=== PATIENT | female | born 1985 | race Two or more races ===

== ENCOUNTER 2020-06-02 14:26 | Emergency (ER) | payer OTHER ==
[~2020-06-02] VITALS: Ht 149.9 cm; Wt 53.5 kg
[2020-06-02] MEDS ORDERED: LEVSIN/SL0.125 MG SL (20:52)
== END 2020-06-02 21:05 | disposition home or self-care (01) ==
LOC: ER 14:26
DX: R10.12 Left upper quadrant pain (principal)

== ENCOUNTER 2020-09-07 20:12 | Emergency (ER) | payer OTHER ==
[~2020-09-07] VITALS: Ht 149.9 cm; Wt 50.8 kg
[~2020-09-07 20:12] MED LIST: LEVSIN/SL0.125 MG SL
[2020-09-07] MEDS ORDERED: DICLOFENAC SODI75 MG PO (21:02)
== END 2020-09-07 21:26 | disposition home or self-care (01) ==
LOC: ER 20:12
DX: S43.491A Other sprain of right shoulder joint, initial encounter (principal); X50.0XXA Overexertion from strenuous movement or load, initial encounter; Y93.B9 Activity, other involving muscle strengthening exercises; Y92.89 Other specified places as the place of occurrence of the external cause; Y99.8 Other external cause status

== ENCOUNTER 2021-05-29 07:29 | Emergency (ER) | payer OTHER ==
[~2021-05-29] VITALS: Ht 149.9 cm; Wt 48.1 kg
[~2021-05-29 07:29] MED LIST changes: +DICLOFENAC SODI75 MG PO
== END 2021-05-29 13:20 | disposition home or self-care (01) ==
LOC: ER 07:29
DX: R10.84 Generalized abdominal pain (principal); R10.13 Epigastric pain

== ENCOUNTER 2025-03-25 00:30 | Inpatient (IN) | payer OTHER ==
[~2025-03-25] VITALS: Ht 157.5 cm; Wt 50.3 kg
[2025-03-25] MEDS ORDERED: ADENOSINE 3 MG/ML VIAL IV STA (01:31)
[2025-03-25] MEDS ORDERED: ADENOSINE 3 MG/ML VIAL IV ONE ×2 (01:33→01:42)
[2025-03-25] MEDS ORDERED: 0.9 % SODIUM CHLORIDE 1,000 ML IV ONE (01:45)
[2025-03-25] MEDS ORDERED: DILTIAZEM HCL 125 MG in DEXTROSE 5 % IN WATER 125 ML IV SCH (02:00)
[2025-03-25 02:08] LABS: BASO % 1.0 % (0.1-1.2); EOS # 0.28 (0.04-0.54); EOS % 1.6 % (0.7-7.0); LYMPH # 4.09 (1.18-3.74); LYMPH % 23.3 % (19.3-53.1); MEAN PLATELET VOLUME 11.40 fl (9.4-12.4); MONO # 1.11 (0.24-0.82); MONO % 6.3 % (4.7-12.5); NEUT # 11.88 (1.56-6.13); NEUT % 67.5 % (34.0-71.1); RED CELL DISTRIBUTION WIDTH 14.5 % (11.6-14.4)
[2025-03-25 02:26] LABS: INR < 0.93
[2025-03-25 02:43] LABS: ALT/SGPT 24.0 U/L (12-78); AST/SGOT 37.0 U/L (15-37); BILIRUBIN TOTAL 0.32 mg/dL (0.3-1.2); BUN CREA RATIO 29.0 (7.0-25.0); CREATININE SERUM 0.9 mg/dL (0.55-1.02); GFR 70.45; GLOBULINA 4.2 G/DL (2.4-3.5); GLUCOSE FASTING 87.0 mg/dL (65-100); OSMOLALITY SERUM 285.0 MOSM/KG (275-295); TSH 2.18 uIU/mL (0.358-3.74)
[2025-03-25 03:14] LABS: EOSINOPHIL MAN 1.0 %; LYMPHOCYTE MAN 30.0 %; NEUTROPHILS MAN 61.0 %
[2025-03-25 03:15] LABS: MONOCYTE MAN 6.0 %
[2025-03-25 10:25] LABS: COVID-19 AG NEGATIVE (NEGATIVE)
[2025-03-25] MEDS ORDERED: METOPROLOL SUCCINATE 25 MG TAB.SR.24H PO SCH (11:55)
[2025-03-25 14:16] VITALS: BP 122/71; O2SAT 100
[2025-03-25 14:47] LABS: CKMB 1.4 NG/ML (0.5-3.6); PHOSPHOKINASE CREATININE 122.0 U/L (26-192)
[2025-03-25 18:07] VITALS: O2SAT 96
[2025-03-25] MEDS ORDERED: ATORVASTATIN CALCIUM 10 MG TABLET PO SCH (21:00)
[2025-03-25 21:20] VITALS: O2SAT 90
[2025-03-25 22:19] LABS: PHOSPHOKINASE CREATININE 94 U/L (26-192)
[2025-03-25 22:20] LABS: CKMB < 1.0 NG/ML (0.5-3.6)
[2025-03-26] VITALS (9 sets, daily range): BP systolic 76–98; BP diastolic 50–60; O2SAT 97–100
[2025-03-26 07:22] LABS: BASO % 1.4 % (0.1-1.2); EOS # 0.42 (0.04-0.54); EOS % 4.5 % (0.7-7.0); LYMPH # 3.96 (1.18-3.74); LYMPH % 42.0 % (19.3-53.1); MEAN PLATELET VOLUME 11.40 fl (9.4-12.4); MONO # 0.76 (0.24-0.82); MONO % 8.1 % (4.7-12.5); NEUT # 4.14 (1.56-6.13); NEUT % 43.8 % (34.0-71.1); RED CELL DISTRIBUTION WIDTH 14.9 % (11.6-14.4)
[2025-03-26 07:36] LABS: ERYTHROCYTE SEDIMENTATION RATE 9 mm/hr (0-20)
[2025-03-26 08:25] LABS: ALT/SGPT 18.0 U/L (12-78); AST/SGOT 18.0 U/L (15-37); BILIRUBIN TOTAL 0.32 mg/dL (0.3-1.2); BUN CREA RATIO 17.0 (7.0-25.0); CHOL HDL RATIO 1.9 (0-5.0); CREATININE SERUM 0.75 mg/dL (0.55-1.02); GFR 86.95; GLOBULINA 3.3 G/DL (2.4-3.5); GLUCOSE FASTING 81.0 mg/dL (65-100); HDL 80.0 mg/dl (40-60); LDL 54.0 mg/dl (0-130); OSMOLALITY SERUM 286.0 MOSM/KG (275-295); T4 FREE 0.99 NG/ML (0.76-1.46); TSH 0.644 uIU/mL (0.358-3.74); VLDL 21.0 (0-39)
[2025-03-26] MEDS ORDERED: ENOXAPARIN SODIUM 40 MG/0.4 ML SYRINGE SUBCUTANEO SCH (09:00)
[2025-03-26] MEDS ORDERED: ASPIRIN 81 MG TABLET.EC PO SCH (09:00)
[2025-03-26] MEDS ORDERED: 0.9 % SODIUM CHLORIDE 500 ML IV ONE (22:00)
[2025-03-27] VITALS (7 sets, daily range): BP systolic 66–103; BP diastolic 42–67; O2SAT 93–98
[2025-03-27] MEDS ORDERED: FAMOTIDINE20 MG PO (12:59)
[2025-03-27] MEDS ORDERED: ST. JOSEPH ASPI81 M2 PO (12:59)
[2025-03-27] MEDS ORDERED: TOPROL XL25 M1 PO (12:59)
== END 2025-03-27 13:58 | disposition home or self-care (01) | DRG 310 ==
LOC: ER 00:31 → MEDJ 11:56 → MEDI 11:56 → MEDJ 16:29
PROVIDERS: General Practice; ADMIT Internal Medicine; ATTEND Internal Medicine
PROC: 4A12X4Z Monitoring of Cardiac Electrical Activity, External Approach (ICD-10-PCS; principal; 2025-03-25)
PROC: B246ZZZ Ultrasonography of Right and Left Heart (ICD-10-PCS; 2025-03-25)
DX: I48.4 Atypical atrial flutter (principal); G71.11 Myotonic muscular dystrophy; F90.9 Attention-deficit hyperactivity disorder, unspecified type